=== PATIENT | female | born 1945 | race Hispanic/Latino ===

== ENCOUNTER → 2021-01-24 | Outpatient (CLI) | payer OTHER | END | disposition home or self-care (01) | LOC: OIH 14:22 | PROVIDERS: ATTEND Internal Medicine | DX: M54.5 Low back pain (principal); M25.551 Pain in right hip; M25.552 Pain in left hip; M25.561 Pain in right knee; M25.562 Pain in left knee; M46.1 Sacroiliitis, not elsewhere classified; M11.251 Other chondrocalcinosis, right hip | CPT/HCPCS: 72100; 72202; 73521 ==

== ENCOUNTER → 2021-07-22 | Outpatient (CLI) | payer OTHER | END | disposition home or self-care (01) | LOC: OIH 08:14 | PROVIDERS: ATTEND Internal Medicine | DX: M79.672 Pain in left foot (principal) | CPT/HCPCS: 73630 ==

== ENCOUNTER → 2021-08-12 | Outpatient (CLI) | payer OTHER | END | disposition home or self-care (01) | LOC: RAH 14:54 | PROVIDERS: ATTEND Internal Medicine | DX: M47.816 Spondylosis without myelopathy or radiculopathy, lumbar region (principal); M48.061 Spinal stenosis, lumbar region without neurogenic claudication | CPT/HCPCS: 72148 ==

== ENCOUNTER → 2021-10-23 | Outpatient (CLI) | payer OTHER | END | disposition home or self-care (01) | LOC: RAH 09:02 | PROVIDERS: ATTEND Internal Medicine | DX: M17.11 Unilateral primary osteoarthritis, right knee (principal); M11.262 Other chondrocalcinosis, left knee; Z98.890 Other specified postprocedural states ==

== ENCOUNTER → 2022-11-10 | Outpatient (CLI) | payer OTHER | END | disposition home or self-care (01) | LOC: RAH 12:47 | PROVIDERS: ATTEND Internal Medicine Cardiovascular Disease | DX: Z13.6 Encounter for screening for cardiovascular disorders (principal); R93.1 Abnormal findings on diagnostic imaging of heart and coronary circulation | CPT/HCPCS: 75571 ==

== ENCOUNTER → 2022-11-13 | Outpatient (CLI) | payer OTHER | END | disposition home or self-care (01) | LOC: SHCH 14:49 | PROVIDERS: ATTEND Internal Medicine Cardiovascular Disease | DX: I35.8 Other nonrheumatic aortic valve disorders (principal); I11.9 Hypertensive heart disease without heart failure; E11.9 Type 2 diabetes mellitus without complications | CPT/HCPCS: 93306 ==

== ENCOUNTER → 2022-12-08 | Outpatient (CLI) | payer OTHER ==
[2022-12-08 12:49] LABS: CREATININE 1.2 mg/dL (0.5-1.5); POTASSIUM 3.8 mmol/L (3.5-5.1)
== END | disposition home or self-care (01) ==
LOC: LAB 08:32
PROVIDERS: ATTEND Internal Medicine Cardiovascular Disease
DX: I10 Essential (primary) hypertension (principal)
CPT/HCPCS: 36415; 80048

== ENCOUNTER → 2022-12-25 | Outpatient (CLI) | payer OTHER | END | disposition home or self-care (01) | LOC: SHCH 15:00 | PROVIDERS: ATTEND Internal Medicine Cardiovascular Disease | DX: I73.9 Peripheral vascular disease, unspecified (principal); I71.40 Abdominal aortic aneurysm, without rupture, unspecified | CPT/HCPCS: 93925 ==

== ENCOUNTER → 2023-01-02 | Outpatient (CLI) | payer OTHER ==
[~2023-01-02] MED LIST: IOHEXOL 350 MG/ML 100ML INFUS..BTL IV ONE; METOPROLOL TARTRATE 1 MG/ML 5ML VIAL IV ONE
== END | disposition home or self-care (01) ==
LOC: RAH 12-10 10:21
PROVIDERS: ATTEND Internal Medicine Cardiovascular Disease
DX: E83.52 Hypercalcemia (principal)
CPT/HCPCS: 75574; J3490; Q9967

== ENCOUNTER → 2024-08-01 | Outpatient (CLI) | payer OTHER ==
[~2024-08-01] MED LIST changes: -METOPROLOL TARTRATE 1 MG/ML 5ML VIAL IV ONE
--- NOTE | 2024-08-01 11:17 | HMCIMG ---
CT ANGIO ABDOMEN PELVIS HISTORY: Aneurysm of renal artery COMPARISON: 09/26/2022 TECHNIQUE: CT angiography of the abdomen and pelvis was obtained using angiographic technique with maximum intensity projection reconstruction images. Patient was not given contrast through intravenous route. Oral contrast was not given. FINDINGS: No pleural effusion is seen bilaterally. There is no evidence of parenchymal disease or pulmonary nodule of the visualized lower lungs. Degenerative changes of the thoracolumbar spine are present. The heart is not enlarged. Coronary arterial calcifications are seen. Postop changes are seen of the lower lumbar spine at L3, L4 and L5 with orthopedic fixation plates and screws causing artifacts limiting evaluation. Liver measured 12.5 cm. Gallbladder is distended. There are small bilateral hypodense adrenal nodules with left measuring 7.8 mm and right measuring 7.6 mm consistent with adrenal adenoma. There is left renal cyst measuring 15 mm. The liver, spleen, adrenal glands and pancreas are unremarkable. There is no evidence of hydronephrosis bilaterally. No evidence of renal stone is seen. There is diverticulosis. Fecal material is seen in the colon. There are normal size retroperitoneal and mesenteric lymph nodes. No ascites is seen. Atherosclerotic changes are present. Postop changes are seen of the right proximal femur with artifacts. There is diffuse atherosclerotic disease. No evidence of abdominal aortic aneurysm is seen. 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 There are calcified plaques noted at the origin of celiac artery and superior mesentery artery without significant stenosis. There is calcified plaque noted at the origin of the left renal artery causing approximately 50% stenosis. The celiac, superior mesenteric and right renal arteries are grossly patent. The visualized portion of the iliac and femoral arterial systems are also grossly patent. Pelvic sidewalls are symmetric bilaterally. Bladder is poorly distended. IMPRESSION: 1. 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 There are calcified plaques noted at the origin of celiac artery and superior mesentery artery without significant stenosis. There is calcified plaque noted at the origin of the left renal artery causing approximately 50% stenosis. Diverticulosis. No ascites. CT was performed with one or more following dose reduction techniques: automated exposure control, adjustment of the mA and kv according to patient's size, or use of a iterative reconstruction technique.
== END | disposition home or self-care (01) ==
LOC: RAH 09:50
PROVIDERS: ATTEND Internal Medicine Cardiovascular Disease
DX: I72.2 Aneurysm of renal artery (principal); K57.30 Diverticulosis of large intestine without perforation or abscess without bleeding; N32.89 Other specified disorders of bladder; K82.8 Other specified diseases of gallbladder; N28.1 Cyst of kidney, acquired; I70.90 Unspecified atherosclerosis; M47.815 Spondylosis without myelopathy or radiculopathy, thoracolumbar region; I25.10 Atherosclerotic heart disease of native coronary artery without angina pectoris; Z98.890 Other specified postprocedural states
CPT/HCPCS: 74174; Q9967

== ENCOUNTER → 2024-08-19 | Outpatient (CLI) | payer OTHER | END | disposition home or self-care (01) | LOC: SHCH 08:58 | PROVIDERS: ATTEND Internal Medicine Cardiovascular Disease | DX: R06.00 Dyspnea, unspecified (principal) | CPT/HCPCS: 93306 ==

== ENCOUNTER → 2025-05-15 | Outpatient (CLI) | payer OTHER ==
--- NOTE | 2025-05-15 19:02 | HMCIMG ---
EXAM: XR Right Shoulder, 2 Views. CLINICAL HISTORY: 79 year old female with pain in right shoulder. COMPARISON: None provided. 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 Recommendation for MRI shoulder for further evaluation. JOINTS: No dislocation. The joint spaces are normal. SOFT TISSUES: The soft tissues are unremarkable. IMPRESSION: 1. Ossification in the distribution of supraspinatus, question for calcific tendinitis. Recommendation for MRI shoulder for further evaluation. 2. No acute osseous abnormality. /[place]
--- NOTE | 2025-05-15 21:14 | HMCIMG ---
EXAM: XR Right Ribs, 4 Views, including frontal view of the chest. CLINICAL HISTORY: 79 year old female with pain in right shoulder. COMPARISON: None provided. FINDINGS: LUNGS: No focal airspace consolidation. PLEURAL SPACES: No pleural effusion. No pneumothorax. BONES: No visible acute rib fracture. Hardware is noted in the lower cervical and lower lumbar spine. IMPRESSION: 1. No visible acute rib fracture. No pneumothorax. /[place]
== END | disposition home or self-care (01) ==
LOC: RAH 10:33
PROVIDERS: ATTEND Nurse Practitioner Family
DX: M25.511 Pain in right shoulder (principal); R07.81 Pleurodynia; W19.XXXA Unspecified fall, initial encounter
CPT/HCPCS: 71100; 73030